=== PATIENT | male | born 1980 | race Two or more races ===

== ENCOUNTER 2025-03-30 14:54 | Emergency (ER) | payer MEDICAID, SELFPAY ==
[2025-03-30 14:55] VITALS: BMI 34.7
[2025-03-30 15:17] VITALS: BP 141/87; PULSE 81; RESP 20; TEMP 36.8; O2SAT 97
--- NOTE | 2025-03-30 15:21 | XR_ITS ---
Examination: CT abdomen and pelvis without contrast. Coronal 3-D reconstructions. Sagittal 2-D reconstructions. Date and time of exam:March 30, 2025, 1741 hours, comparison November 27, 2011. INDICATIONS: Rectal pain and bloody stools today CTDI: vol (mGy): 9.60 DLP: (mGycm): 632. Technique: Axial images of the abdomen have been obtained, 3 mm slice thickness Intravenous contrast material has not been administered. Low dose protocols were performed. One or more of the following dose reduction techniques were used; automated exposure control, adjustment of the mA and/or KV according to patient size, use of iterative reconstruction technique. Findings: No focal liver or splenic lesions. No gallstones. No pancreatic or adrenal mass. No renal or ureteral calculi, no hydronephrosis. Aorta normal size Normal appendix No bowel obstruction Colonic diverticulosis No diverticulitis No prostatomegaly Contracted urinary bladder Large amounts of stool in the rectum with thickening of the rectal wall, mild, consider proctitis No perianal abscess Mild osteopenia IMPRESSION: Normal appendix No bowel obstruction Colonic diverticulosis no diverticulitis Large amounts of stool in the rectum with mild thickening of the rectal wall, differential would include proctitis No perianal abscess
--- NOTE | 2025-03-30 15:21 | PD.EDRME ---
Rapid Medical Screening Exam RME Arrival date/time: 03/30/25 14:54 45-year-old male presents to the department for complaints of rectal bleeding ongoing x 2 weeks Chief Complaint: GI Bleed Vital signs: Vital Signs Temperature 98.3 F 03/30/25 15:17 Pulse Rate 81 03/30/25 15:17 Respiratory Rate 20 03/30/25 15:17 Blood Pressure 141/87 H 03/30/25 15:17 Pulse Oximetry (%) 97 03/30/25 15:17 Oxygen Delivery Method Room Air 03/30/25 15:17
[2025-03-30 15:44] LABS: Basophils # (Auto) 0.0 Thou/mm3 (0.0-0.2); Basophils % (Auto) 1 % (0-2.5); Eosinophils # (Auto) 0.1 Thou/mm3 (0.0-0.5); Eosinophils % (Auto) 2 % (0-10); Hematocrit 47.1 % (41.0-53.0); Hemoglobin 16.2 g/dL (13.5-16.0); Immature Granulocytes Auto 0.03 Thou/mm3 (0.00-0.00); Lymphocytes # (Auto) 1.7 Thou/mm3 (1.0-4.8); Lymphocytes % (Auto) 28 % (10-50); Mean Corpuscular HGB Conc 34.4 g/dl (31.0-37.0); Mean Corpuscular Hemoglobin 30.7 pg (25.0-35.0); Mean Corpuscular Volume 89 fL (80-100); Monocytes # (Auto) 1.0 Thou/mm3 (0.0-0.8); Monocytes % (Auto) 16 % (0-12); Neutrophils # (Auto) 3.2 Thou/mm3 (1.8-7.7); Neutrophils % (Auto) 53 % (37-80); Nucleated Red Blood Cell # 0.00 Thou/mm3 (0.00-0.00); Nucleated Red Blood Cell % 0 /100 WBC (0); Platelet Count 267 Thou/mm3 (140-440); RDW Standard Deviation 42.5 fL (35.1-43.9); Red Blood Count 5.27 Miln/mm3 (4.50-5.90); White Blood Count 6.1 Thou/mm3 (3.8-10.6)
[2025-03-30 16:01] LABS: INR 1.0 (0.9-1.3); Partial Thromboplastin Time 31.9 Seconds (22.0-36.0); Prothrombin Time 11.0 Seconds (9.0-12.2)
[2025-03-30 16:04] LABS: Alanine Aminotransferase 53 U/L (10-49); Albumin, Serum 4.6 gm/dL (3.5-5.0); Albumin/Globulin Ratio 1.6 (1.2-2.2); Alkaline Phosphatase 89 U/L (46-116); Anion Gap 10 (7-16); Aspartate Amino Transferase 30 U/L (0-34); BUN/Creatinine Ratio 15 Ratio (12-20); Bilirubin,Total 0.6 mg/dL (0.3-1.2); Blood Urea Nitrogen 15 mg/dL (9-23); Calcium 10.0 mg/dL (8.3-10.6); Calcium (Corrected) 10.0 mg/dL (8.5-10.1); Carbon Dioxide 26.0 mMol/L (20.0-31.0); Chloride 102 mMol/L (98-107); Creatinine (Component) 1.0 mg/dL (0.6-1.3); Estimated Creatinine Clearance 106.6 mL/min (>60); Globulin 2.9 gm/dL (2.3-3.5); Glucose 130 mg/dL (74-106); Lipase 26 U/L (12-53); Osmolality,Calculated 278 (275-295); Potassium 4.3 mMol/L (3.4-5.1); Sodium 138 mMol/L (136-145); Total Protein 7.5 gm/dL (5.7-8.2); eGFR > 60 See Note
[2025-03-30 17:08] LABS: Collection Type, Urine Clean Catch
[2025-03-30 17:46] LABS: Bilirubin,Urine Negative (Negative); Blood,Urine Negative (Negative); Clarity,Urine Clear (Clear/Hazy); Color,Urine Lt-Yellow (Lt Yel-Yel); Culture Indicated,Urine Not Indicated; Glucose, Urine Trace (Negative); Ketones,Urine Negative (Negative); Leukocyte Esterase,Urine Negative (Negative); Nitrite,Urine Negative (Negative); PH,Urine 6.5 (5.0-7.0); Protein,Urine Trace (Neg - Trace); RBC,Urine 2 /hpf (0-3); Specific Gravity,Urine 1.026 (1.001-1.035); Squamous Epithelial Cell,Urine < 1 /hpf (0-5); Urobilinogen,Urine Negative mg/dL (0.0-1.0); WBC,Urine 1 /hpf (0-5)
[2025-03-30 17:49] LABS: Sperm,Urine Present
[2025-03-30 17:51] LABS: Calcium Oxalate Crystals,Urine 4+; Hyaline Casts,Urine 1 /hpf (0-1)
[2025-03-30 19:26] VITALS: BP 137/93; PULSE 81; RESP 16; TEMP 36.8; O2SAT 97
--- NOTE | 2025-03-30 19:52 | EDNOTE_ITS ---
ED GI Bleed RME/HPI General Chief complaint: GI Bleed Stated complaint: BLOOD IN STOOL X 2 WKS Time Seen by Provider: 03/30/25 18:06 Arrival date/time: 03/30/25 14:54 Limitations: no limitations RME / HPI RME / HPI Narrative: 45-year-old male is here to the 2-week history of rectal pain and bright red blood with bowel movements. He denies any abdominal pain, nausea, no vomiting. Has no fevers or chills. Denies any trauma. He has no shortness of breath or weakness. She denies any chronic medical illness. No heavy use of NSAIDs. Denies drinking. Does not use tobacco. He has no other acute complaints or concerns. Related Data Home Medications ?Medication ?Instructions ?Recorded ?Confirmed metformin 1,000 mg tablet 1,000 mg PO BID 10/07/2103/31 Previous Rx's ?Medication ?Instructions ?Recorded lisinopril 20 mg tablet 20 mg PO QDAY #30 tabs 11/16 acetaminophen 650 mg 650 mg PO Q8H PRN fever or p ain 04/21/23 tablet,extended release (Tylenol 8 #30 tabs Hour) cyclobenzaprine 10 mg tablet 10 mg PO TID PRN muscle s pasm / 04/21/23 pain #15 tabs ibuprofen 600 mg tablet 600 mg PO Q8H PRN fever or p ain 04/21/23 #30 tabs ciprofloxacin HCl 500 mg tablet 500 mg PO BID #14 tabs 03/30/25 (Cipro) hydrocortisone acetate 25 mg 25 mg NJ BID 2 weeks #28 ea 03/30/25 rectal suppository (Anusol-HC) Allergies Allergy/AdvReac Type Severity Reaction Status Date / Time No Known Allergies Allergy Verified 03/30/25 14:57 Review of Systems Review of Systems Systems Reviewed: All systems reviewed, normal except as documented ED Exam General Limitations: Present no limitations General appearance: Present alert and in no apparent distress Head Head exam: Present atraumatic Eye Eye exam: Present normal appearance, PERRL and EOMI ENT ENT exam: Present normal exam, normal oropharynx and mucous membranes moist Neck Neck exam: Present normal inspection, full ROM and trachea midline Chest Chest inspection: Present normal inspection and symmetric chest wall rise Respiratory Respiratory exam: Present normal lung sounds bilaterally Cardiovascular Cardiovascular exam: Present regular rate, normal rhythm and normal heart sounds Abdominal Exam Abdominal exam: Present soft and normal bowel sounds Rectal Exam Rectal exam: Present normal rectal tone, heme (+) stool (Exam performed with NHAN [place] present) and tenderness Extremities Exam Extremities exam: Present normal inspection and full ROM Back Exam Back exam: Present normal inspection and full ROM Neurological Exam Neurological exam: Present alert and oriented X3 Psychiatric Psychiatric exam: Present normal affect and normal mood Skin Skin exam: Present warm, dry, intact and normal color Course Quality Measures none Orders Category Date Time Status CT abdomen pelvis wo con Stat Exams 03/30/25 15:21 Completed CBC Stat Lab 03/30/25 15:33 Completed Comprehensive Metabolic Panel Stat Lab 03/30/25 15:33 Completed Lipase Stat Lab 03/30/25 15:33 Completed Partial Thromboplastin Time Stat Lab 03/30/25 15:33 Completed Prothrombin Time with INR Stat Lab 03/30/25 15:33 Completed UA, C/S IF [Urinalysis, C/S if Indicated] Stat Lab 03/30/25 16:56 Completed Vital Signs Vital signs: Vital Signs Temperature 98.3 F 03/30/25 15:17 Pulse Rate 81 03/30/25 15:17 Respiratory Rate 20 03/30/25 15:17 Blood Pressure 141/87 H 03/30/25 15:17 Pulse Oximetry (%) 97 03/30/25 15:17 Oxygen Delivery Method Room Air 03/30/25 15:17 GI Bleed MDM Narrative MDM Narrative:: 45-year-old male is here to the 2-week history of rectal pain and bright red blood with bowel movements. He denies any abdominal pain, nausea, no vomiting. Has no fevers or chills. Denies any trauma. He has no shortness of breath or weakness. She denies any chronic medical illness. No heavy use of NSAIDs. Denies drinking. Does not use tobacco. He has no other acute complaints or concerns. On exam, patient is nontoxic-appearing in no visible signs distress. Abdomen exam is unremarkable. Rectal exam is positive for Hemoccult. There is bright red blood at the rectum. His CBC is unremarkable. CT revealed inflammatory changes at the rectum. This discussed with our on-call strategy associate, Dr. Ga who recommended outpatient therapy with hydrocortisone and ciprofloxacin. Patient may follow-up with his primary doctor. Obtain referral for GI as an outpatient. Return anytime for new or worsening changes needed. Patient data External records reviewed:: None Clinical information provided by:: patient Social determinants that could affect healthcare access:: none Patient has the following chronic illnesses:: n/a How is presenting disease/condition affected by chronic disease/condition?: uneffected by Evaluation data The following diagnostics were reviewed and interpreted by me:: other (specify) Lab and/or radiology exams considered but not ordered:: n/a Interpretation Summary: CBC is unremarkable. Bedside Hemoccult is positive. CT reveals inflammatory changes at the rectum. Medications / Prescriptions Medications or Prescriptions considered but not ordered:: n/a Medication administrations:: n/a Consultations Consultation(s) initiated? (list below): Yes Diagnosis GI bleed differential diagnosis: hemorrhoids, Upper gastrointestinal hemorrhage, Lower gastrointestinal hemorrhage and melena Most likely diagnosis given after review of the tests above:: Proctitis Admission Indicated Admission indicated?: not indicated Admission Request Was there a request for admission?: No Disposition Plan Disposition Plan: Discharge Discharge Attestation Discharge Attestation: The patient and all family members were given an opportunity to ask questions and understood the discharge instructions. Discharge instructions specifically effects, indications for sooner follow up or return to the emergency department, and the expected course of current diagnosis. Patient condition: Stable Discharge Plan Plan Patient Disposition: HOME (Self Care) Patient condition on transfer: Stable Prescriptions/Referrals Prescriptions/Med Rec: New ciprofloxacin HCl [Cipro] 500 mg tablet 500 mg PO BID Qty: 14 0RF hydrocortisone acetate [Anusol-HC] 25 mg suppository 25 mg NJ BID 14 Days Qty: 28 0RF No Action lisinopril 20 MG tablet 20 mg PO QDAY Qty: 30 0RF metformin 1,000 mg tablet 1,000 mg PO BID cyclobenzaprine 10 mg tablet 10 mg PO TID PRN (Reason: muscle spasm / pain) Qty: 15 0RF acetaminophen [Tylenol 8 Hour] 650 mg tablet extended release 650 mg PO Q8H PRN (Reason: fever or pain) Qty: 30 0RF ibuprofen 600 mg tablet 600 mg PO Q8H PRN (Reason: fever or pain) Qty: 30 0RF Referrals: No Primary/Family,Physician [Primary Care Provider] - In 1 week Problem List Clinical Impression: Acute proctitis Patient/Caregiver Discharge Instructions Additional Instructions: - Use provide medications as prescribed. Apply a rectal suppository twice daily for the next 2 weeks. Use provided antibiotic every 12 hours for a week. - Contact your primary doctor tomorrow to schedule close follow-up appointment. - Please return to the emergency room at anytime for any worsening or emergent changes. Print Language: [place]une[place] Stand Alone Forms: Amena Award Info., Patient Portal Info Letter
== END 2025-03-30 20:02 | disposition home or self-care (01) ==
PROVIDERS: Nurse Practitioner Primary Care; Emergency Provider Emergency Medicine
DX: K62.89 Other specified diseases of anus and rectum (principal)
CPT/HCPCS: 36415; 74176; 80053; 81001; 83690; 85025; 85610; 85730; 99283